=== PATIENT | female | born 1975 | race Caucasian/White ===

== ENCOUNTER 2025-01-25 19:46 | Emergency (ER) | payer BC ==
[~2025-01-25] VITALS: Ht 160 cm; Wt 68.2 kg
[2025-01-25 19:48] VITALS: BP 129/82; PULSE 64; RESP 16; O2SAT 99
--- NOTE | 2025-01-25 22:03 | Physician Documentation ---
History of Present Illness ~ Chief Complaint: Eye Pain Stated Complaint: SOMETHING IN EYE Time Seen by MD: 21:07 HPI Patient is seen today with complaints of pain of her left eye. Patient states she put her contacts in this morning and she did feel a little irritation this morning and throughout the day with her contact but then when she took her contact out this evening her left eye became exquisitely painful which is what brought her into the ED tonight. Patient denies leaving our contact info for too long and denies any new contacts. Patient has no other concern or complaint at this time. Medication Reconciliation Allergies: Coded Allergies: No Known Allergies (Unverified , 01/25/25) Review of Systems Constitutional: Denies: chills, fever, weakness Eyes: Denies: pain, blurred vision ENT: Denies: ear pain, nose pain, throat pain, mouth pain Respiratory: Denies: cough, shortness of breath Cardiovascular: Denies: chest pain, palpitations Gastrointestinal: Denies: abdominal pain, nausea, vomiting Genitourinary: Denies: burning, dysuria Female Genitalia: Denies: vaginal discharge, pelvic pain Neurological: Denies: headache, dizziness Musculoskeletal: Denies: pain, swelling Integumentary: Denies: rash, lesions Allergic/Immunologic: Denies: hives, itching Hematologic/Lymphatic: Denies: no symptoms reported Psychiatric: Denies: depression, anxiety Physical Exam Vital Signs: Temperature: 98.0, Source: Temporal, Heart Rate: 64, Respiratory Rate: 16, BP: 129/82, Pulse Oximetry: 99, Weight: 68.180 Oxygen Flow Rate: 0 Physical Exam General: Awake and Alert, no acute distress. HEENT: On examination, on Wood's lamp exam with fluorescein stain, the patient has significant corneal abrasion of the left eye in the shape of a contact lens. There is significant uptake of fluorescein stain of the left cornea in the shape of a contact. I do not appreciate any ulceration. Sclera is injected. Neck: Supple without masses and tenderness. Resp: Unlabored. Lungs clear to auscultation bilaterally. Heart: Regular Rate and rhythm, normal S1 and S2 without murmur, rub or gallop. Abdomen: Soft and non tender no organomegaly Extremities: No cyanosis,clubbing or edema. Skin: Warm and Dry. Procedures Eye Procedure Procedure Note Procedure note: Wood's lamp examination was performed after three drops of lidocaine/proparacaine were administered into the left eye. Patient had good relief of pain in the left eye shortly after administration of proparacaine eyedrops. Fluorescein stain was applied to left eye and Wood's lamp used to appreciate large corneal abrasion in the shape of a contact lens over the left eye. I did not appreciate any ulceration of the cornea or sclera on exam. Progress Results/Orders Results/Orders Completed Orders - MIR MACIEL Neomy/Polymyx B/Hc Ophth Susp. (Cortispo (01/25/25 21:45) Vital Signs 01/25/25 19:48 Temp 98.0 Pulse 64 Resp 16 B/P (MAP) 129/82 Pulse Ox 99 O2 Flow Rate 0 Medical Decision Making Findings Patient is seen today with complaints of pain of her left eye. Patient states she put her contacts in this morning and she did feel a little irritation this morning and throughout the day with her contact but then when she took her contact out this evening her left eye became exquisitely painful which is what brought her into the ED tonight. Patient denies leaving our contact info for too long and denies any new contacts. Patient has no other concern or complaint at this time. Patient was given TobraDex eyedrops in the ED tonight with her 1st administration tonight. Patient will continue administration one drop into the left eye 4 times a day. Patient will follow up with Ophthalmology tomorrow as soon as possible for further eval and treatment. Return to ED with any worsening, concerning or changing symptoms. Departure Disposition: HOME / SELF CARE / HOMELESS Impression: Primary Impression: Corneal abrasion Qualified Codes: S05.02XA - Injury of conjunctiva and corneal abrasion without foreign body, left eye, initial encounter Condition: Improved Discharge Instructions: Corneal Abrasion Additional Instructions: Patient was given TobraDex eyedrops in the ED tonight with her 1st administratio n tonight. Patient will continue administration one drop into the left eye 4 times a day. Patient will follow up with Ophthalmology tomorrow as soon as possible for further eval and treatment. Return to ED with any worsening, concerning or changing symptoms. Signature Scribe Signature: No scribe Attestation: No scribe MIR MACIEL January 25, 2025 22:03
[2025-01-25] MEDS: neomy sulf/polymyx B sulf/HC 7.5ml ophthalmic suspension LEFTEYE STA (22:31)
[2025-01-25] MEDS: tobramycin/dexamethasone ophthalmic suspension LEFTEYE STA (22:31)
[2025-01-25 22:35] VITALS: TEMP 98
== END 2025-01-26 | disposition home or self-care (01) ==
LOC: ER 01-26 00:16
DX: S05.02XA Injury of conjunctiva and corneal abrasion without foreign body, left eye, initial encounter (principal); X58.XXXA Exposure to other specified factors, initial encounter; Y93.89 Activity, other specified; Y92.89 Other specified places as the place of occurrence of the external cause; Y99.8 Other external cause status
CPT/HCPCS: 99283